=== PATIENT | female | born 1950 | race Caucasian/White ===

== ENCOUNTER → 2019-08-03 | Outpatient (CLI) | payer OTHER, MEDICARE ==
[~2019-08-03] VITALS: Ht 162.6 cm; Wt 59.0 kg
[~2019-08-03] MED LIST: AMITRIPTYLINE H10 M1 PO; AMITRIPTYLINE H25 M2 PO; ASA81BEC PO; AZELASTINE137 MCG/0. NASAL; CALCIUM 500 MG1 EAC2 PO; COQ1050 MG PO; DHEA 50 MG TAB1 EACH PO; ESCITALOPRA5 MG/5 ML PO; FISH OIL 1,0001 EAC9 PO; FLONASE 0.05%50 MCG NARES; GLUCOSAMINE-CH1 EA15 PO; LIPITOR 20 MG T20 M1 PO; LODINE XL500 MG PO; MAGNESIUM250 M1 PO; MEDROLDOSEPACK PO; MIGRAINE FORMU1 EACH PO; NIACIN500 MG PO; OMEPRAZOLE40 MG PO; PEPCID20 MG PO; PROBIOTIC1 EAC2 PO; RED YEAST RICE600 MG PO; SUPER THERAVIT1 EACH PO; TURMERIC500 M2 PO; VITAMIN B-121000 MC2 SUBLING; VITAMIN C500 MG PO
[2019-08-03 08:48] VITALS: BP 138/88
--- NOTE | 2019-08-03 09:24 | NUR ---
Pain Clinic Assessment: 1. History of Osteoarthritis: Right Lower Extremity Left Upper Extremity History of Rheumatoid Arthritis: Not Applicable 2. Height: 5 ft. 4 in. 162.6 cm. Weight: 130.0 lb. oz. 58.968 kg. Patient's BMI: 22.3 3. Vital Signs: BP: 138/88 Pulse: 71 Resp: 14 Temp: 02 Sat: 100 ECG Mon: 4. Pain Intensity: 7-8 5. Fall Risk: Dizziness: Y Needs help standing or walking: N Fallen in the last 3 months: N Fall risk comments: 6. Patient on Blood Thinner: None 7. History of Hypertension: N 8. Opioid Therapy greater than 6 weeks: N Opiate Contract Signed: 9. Risk Assessment Tool Provided: 10. Functional Assessment Tool: 11. Recreational Drug Use: Never Drug Type: Tobacco Use: Never Smoker Tobacco Type: Amount or Packs/day: How Many Years: Alcohol Use: Yes Frequency: Weekly Quant: 3-4
--- NOTE | 2019-08-12 08:25 | HPC ---
[facility] [address] [place] [address] PAIN MANAGEMENT CONSULTATION Name: KAYDEN BEAULIEU Room #: REG KLEVRE TorreyTom.#: [id number] Admission: 08/03/19 Attend Phys: Vicky Ferro MD Discharge: Date of : 54 Report #: [id number] THIS REPORT FOR: //name// CC: [facility] physician/PCP Vicky Mcdonough MD DATE OF SERVICE: 08/03/2019 CHIEF COMPLAINT: Chronic neck pain. HISTORY OF PRESENT ILLNESS: The patient is a 68-year-old female who has been referred to the pain clinic for evaluation. She has been experiencing pain for a number of years a few months ago, she noticed worsening of pain and discomfort and a stiff neck. She has been experiencing pain that radiates down into her left arm. She sometimes notes headaches associated with this pain. She describes the discomfort as continuous, aching and rates it as a 7-8/10. Denies any specific injury. She had an MRI of her neck performed. She was told that she had some bulging disks up in the neck area. The patient has recently started physical therapy. ALLERGIES: ERYTHROMYCIN, AMPICILLIN, CEFDINIR. CURRENT MEDICATIONS: Omeprazole 40 mg, Pepcid 20 mg, Lipitor 20 mg, DHEA hormone 50 mg, Escitalopram 5 mg, Azelastine nasal spray 2 puffs a.m., 2 puffs p.m., Flonase nasal spray 2 puffs, mirtazapine 15 mg for sleep, etodolac 500 mg p.r.n., 81 mg aspirin, omega fish oil 1000 mg 1 a day with women's multivitamin, vitamin C 500 mg, vitamin B12 1000 mcg, calcium supplement 600 mg, vitamin D3, magnesium 1000 mg, probiotic, turmeric 500 mg, glucosamine chondroitin, CoQ10 50 mg, red yeast rice, Niacin. PAST MEDICAL HISTORY: Arthritis, GERD, hypercholesterolemia, rhinogenic headaches, insomnia, vertigo, neck stiffness, and hypercholesterolemia. PAST SURGICAL HISTORY: [employer] 07/18/2019, back surgery L5, 11/2002, sinus surgery 02/2004, knee meniscus repair 11/2014. SOCIAL HISTORY: She is single. Exercises 5 times a week. 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 She has not worked in the last 6 years. LABORATORY DATA: MRI of the cervical spine dated 06/29/2019, indication, neck pain, chronic neck stiffness, which has worsened over the last 4 months. 1. C2/C3 right paracentral protrusion appears to be a disk protrusion rather than a spur. A 0.7 cm at the base and 0.2 cm in height. There is no [facility] [address] PAIN MANAGEMENT CONSULTATION Name: BRITTNEEKAYDEN Room #: REG KLEVER Wetzel#: [id number] Admission: 08/03/19 Attend Phys: Vicky Ferro MD Discharge: Date of : 54 Report #: [id number] foraminal compromise. Thecal sac 1.1 cm AP. 2. C3-C4 mild disk osteophyte complex noted with uncinate process spurring. There is mild right foraminal narrowing. The thecal sac 1.1 cm AP. 3. C4-C5 in addition to the anterolisthesis, there is a facet hypertrophy, which is greater on the left and there is bilateral uncinate process spurring. There is mild right foraminal narrowing. Thecal sac 1.1 cm AP. 4. C5-C6, there is disk osteophyte complex and uncinate process spurring. There is narrowing of the interspace. Facet hypertrophy is noted and probably mild. There is moderate to severe right foraminal narrowing. There is right lateral recess narrowing. Thecal sac 1 cm AP. 5. C6-C7, there is disk osteophyte complex and uncinate process spurring. There is buckling of the ligamentum flavum. There is mild canal stenosis and moderate foraminal narrowing. Thecal sac 9 cm AP. 6. C7/T1 intervertebral disk, facets and foramen appear normal. Thecal sac 1.2 cm AP. PAIN CLINIC ASSESSMENT/PQRS: 1. History of osteoarthritis, right lower extremity and left upper extremity. The patient is not being treated for rheumatoid arthritis. 2. Height 5 feet 4 inches, weight 130 pounds, BMI is 22.3. 3. Vital signs: Blood pressure 138/88, pulse 71, respiratory rate 14, room air saturation is 100%. 4. Pain intensity 7-8/10. 5. Fall risk. The patient has not fallen in the last 3 months. 6. Blood thinner. The patient is not on a blood thinning medication. 7. Hypertension. The patient is not being treated for hypertension. 8. Opioids greater than 6 weeks. The patient is not on opioid regimen. 9. Risk assessment tool, low for opioid use. 10. Functional assessment tool 10 out of 70. 11. Recreational drug use. The patient denies use of recreational drugs. 12. Tobacco: The patient has never smoked. 13. Alcohol: The patient occasionally drinks 3-4 alcoholic beverages weekly. PHYSICAL EXAMINATION: GENERAL: The patient is a well-developed, well-nourished white female. Appears her stated age. She is alert and oriented x 3. Her affect is appropriate. Speech is fluent. HEENT: Normocephalic, atraumatic. Extraocular eye muscles intact. Sclerae nonicteric. Mucous membranes are moist. Neck, the patient notes some decreased range of motion in her neck, left and right lateral rotation, flexion, extension, left and right lateral bending. EXTREMITIES: The patient notes some increased pain in the left arm with some pain radiating down to the shoulder. Deep tendon reflexes are +1 on the left and right. Muscle strength generally 5-/5 for the major muscle groups in the upper extremity. The patient without significant scoliosis, kyphosis or lordosis. Well-healed scar in the lower back area. Anterior and posterior [facility] [address] [place] [address] PAIN MANAGEMENT CONSULTATION Name: NICKY BEAULIEUKAYDEN Room #: REG [facility]#: [id number] Admission: 08/03/19 Attend Phys: Vicky Ferro MD Discharge: Date of : 54 Report #: [id number] spring tests are negative. Deep tendon reflexes are trace at the knees. IMPRESSION: 1. Cervical radiculopathy involving the left neck with pain down into the right shoulder and arm. 2. Arthritis. 3. GERD. 4. Hypercholesterolemia. 5. Rhinogenic headaches. 6. Insomnia. 7. Vertigo. 8. Neck stiffness. 9. Hypercholesterolemia. RECOMMENDATIONS: We discussed treatment options with the patient. At this juncture, we will consider possibility of a cervical epidural steroid injection. The patient's history was reviewed with her. A model was used to indicate the area of probable pathology. Questions were sought and answered. We will try a conservative approach. The patient will try a Medrol Dosepak and note its efficacy. The patient will also try amitriptyline 10 mg at bedtime and increase this as instructed. Hopefully, she will notice with the amitriptyline, lessening of her pain and improvement in her sleep pattern. We would hope that the Medrol Dosepak would decrease the amount of pain and discomfort that she is experiencing as well. If her pain continues, she will return to the Pain Clinic, at which time we will proceed with a cervical epidural steroid injection to help quell and decrease the amount of pain and discomfort she is experiencing. We would like to thank you for letting us participate in her care. We hope she continues to improve. <ELECTRONICALLY SIGNED> By: Vicky Ferro MD 08/12/19 0825 [id number] Vicky Ferro MD /nt
== END ==
LOC: PAIN 06:53
DX: M54.12 Radiculopathy, cervical region (principal); M19.90 Unspecified osteoarthritis, unspecified site; K21.9 Gastro-esophageal reflux disease without esophagitis; E78.00 Pure hypercholesterolemia, unspecified; G47.00 Insomnia, unspecified; R42 Dizziness and giddiness

== ENCOUNTER → 2019-08-12 | Outpatient (CLI) | payer OTHER, MEDICARE ==
[~2019-08-12] VITALS: Ht 162.6 cm; Wt 61.2 kg
[2019-08-12 10:02] VITALS: BP 130/80
--- NOTE | 2019-08-12 10:07 | NUR ---
Pain Clinic Assessment: 1. History of Osteoarthritis: Right Lower Extremity Left Upper Extremity History of Rheumatoid Arthritis: Not Applicable 2. Height: 5 ft. 4 in. 162.6 cm. Weight: 135.0 lb. oz. 61.236 kg. Patient's BMI: 23.2 3. Vital Signs: BP: 130/80 Pulse: 81 Resp: 14 Temp: 02 Sat: 100 ECG Mon: 4. Pain Intensity: 5 5. Fall Risk: Dizziness: N Needs help standing or walking: N Fallen in the last 3 months: N Fall risk comments: 6. Patient on Blood Thinner: None 7. History of Hypertension: N 8. Opioid Therapy greater than 6 weeks: N Opiate Contract Signed: 9. Risk Assessment Tool Provided: 10. Functional Assessment Tool: 11. Recreational Drug Use: Never Drug Type: Tobacco Use: Never Smoker Tobacco Type: Amount or Packs/day: How Many Years: Alcohol Use: Yes Frequency: Quant:
--- NOTE | 2019-08-18 11:13 | HPC ---
[facility] [place] [address] PAIN MANAGEMENT CONSULTATION Name: KAYDEN BEAULIEU Room #: REG Liyah Theo.#: [id number] Admission: 08/12/19 Attend Phys: Vicky Ferro MD Discharge: Date of : 54 Report #: [id number] THIS REPORT FOR: //name// CC: [facility] physician/PCP Vicky Mcdonough MD DATE OF SERVICE: 08/12/2019 CHIEF COMPLAINT: Neck pain. HISTORY: The patient is a 68-year-old female who has been seen in the pain clinic because of chronic pain involving her neck. She has had worsening of pain with stiffness involving her neck. It involves her shoulder. It affects the left as well as the right side. The left side is more problematic. Since 02/2019, the pain has slowly progressed and worsened. Described as an aching stiffness and a pulling sensation. Rates the pain as 5/10 at this juncture. She denies any trauma. She has been told that she has a bulging disk. Recently started physical therapy. She has returned today for treatment and possibility of a cervical epidural steroid injection. ALLERGIES: ERYTHROMYCIN, AMPICILLIN, CEFDINIR. CURRENT MEDICATIONS: Omeprazole 40 mg, Pepcid 20 mg, Lipitor 20 mg, DHEA hormone 50 mg, escitalopram 5 mg, azelastine nasal spray 2 puffs, Flonase 2 puffs, mirtazapine 15 mg for sleep, Etodolac 500 mg p.r.n., aspirin 81 mg, omega fish oil 1000 mg, Women's multivitamin, vitamin C 500 mg, vitamin B12 1000 mcg, calcium supplement 600 mg, vitamin D3, magnesium 1000 mg, probiotic, turmeric 500 mg, glucosamine chondroitin, CoQ10 50 mg, red yeast rice, niacin. PAIN CLINIC ASSESSMENT AND PQRS: 1. The patient has a history of osteoarthritis involving the lower extremities and with her left upper extremity. The patient is not being treated for rheumatoid arthritis. 2. Height 5 feet 4 inches, weight 135 pounds, BMI of 23. 3. Vital signs: Blood pressure 130/80, pulse 81, respiratory rate 14, room air saturation is 100%. 4. Pain intensity 02/11. 5. Fall risk. The patient has not fallen in the last 3 months. 6. Blood thinner. The patient is not on a blood thinning medication. 7. Hypertension. The patient is not being treated for hypertension. 8. Opioids greater than 6 weeks. 9. Risk assessment tool, low for opioid use. 10. Functional assessment tool, . 11. Recreational drug use: The patient denies. 12. Tobacco: The patient has never smoked. [address] [address] PAIN MANAGEMENT CONSULTATION Name: BRITTNEEKAYDEN Room #: REG KLEVER Wetzel#: [id number] Admission: 08/12/19 Attend Phys: Vicky Ferro MD Discharge: Date of : 54 Report #: [id number] 13. Alcohol. The patient denies frequent use of alcoholic beverages. PHYSICAL EXAMINATION: GENERAL: The patient is a well-developed, well-nourished white female. Appears her stated age. She is alert and oriented x 3. Her affect is appropriate. Speech is fluent. HEENT: Normocephalic, atraumatic. Extraocular eye muscles intact. Sclerae nonicteric. Mucous membranes are moist. NECK: Without adenopathy or JVD. MUSCULOSKELETAL: The patient has some decreased range of motion of her neck. She has decreased left and right lateral rotation, flexion and extension. EXTREMITIES: Upper left arm, notes some pain radiating down into her shoulder. Muscle strength judged to be 5-/5 for the major muscle groups in the upper extremity. The patient is without significant scoliosis, kyphosis or lordosis. She has a well-healed scar in the lower portion of her back. Anterior and posterior spring tests were negative. IMPRESSION: 1. Cervical radiculopathy involving the left neck with pain radiating down into the right shoulder and arm. 2. Arthritis. 3. Gastroesophageal reflux disease. 4. Hypercholesterolemia. 5. Rhinogenic headache. 6. Insomnia. 7. Vertigo. 8. Neck stiffness. 9. Hypercholesterolemia. RECOMMENDATIONS: We discussed treatment options with the patient. Risks and benefits of an epidural injection were discussed. Possible complications of the procedure were reviewed. They could include but are not limited to infection, nerve damage, increased muscle soreness, headache. The patient did try a Medrol Dosepak. She did note some improvement in her headaches, but still finds that this is somewhat problematic. She elects today to proceed with a cervical epidural steroid injection given that the fall holidays are upon us. PROCEDURE NOTE: The patient was taken to the procedure area. She was then assisted in getting on the examination table. Her back was sterilely prepped with a Betadine solution on the cervical area. Fluoroscopy using anterior, posterior as well as lateral viewing were implemented. A 25-gauge needle was used to anesthetize the area between C7 and T1. A 17-gauge Tuohy with loss of resistance technique was used to gain access to the epidural space. There was no CSF, heme or paresthesia. Total of 120 mg of triamcinolone was injected. The patient's pain decreased from 5-0 at the time of discharge. There were no complications. A total of 21 seconds' fluoroscopy time was used. The patient [facility] [address] [place] [address] PAIN MANAGEMENT CONSULTATION Name: KAYDEN BEAULIEU Room #: REG [facility] Rashard#: [id number] Admission: 08/12/19 Attend Phys: Vicky Ferro MD Discharge: Date of : 54 Report #: [id number] will follow up in the future as needed. We would like to thank you for letting us participate in her care. We hope she continues to improve. <ELECTRONICALLY SIGNED> By: Vicky Ferro MD 08/18/19 1113 [id number] Vicky Ferro MD /PMT
== END | disposition home or self-care (01) ==
LOC: PAIN 06:51
DX: M54.12 Radiculopathy, cervical region (principal); M19.90 Unspecified osteoarthritis, unspecified site; K21.9 Gastro-esophageal reflux disease without esophagitis; E78.00 Pure hypercholesterolemia, unspecified; G47.00 Insomnia, unspecified; I10 Essential (primary) hypertension; Z88.8 Allergy status to other drugs, medicaments and biological substances; Z79.899 Other long term (current) drug therapy; Z79.82 Long term (current) use of aspirin